=== PATIENT | male | born 1965 | race Caucasian/White ===

== ENCOUNTER 2020-05-09 21:52 | Emergency (ER) | payer SELFPAY ==
[2020-05-09 21:58] VITALS: BP 147/92; PULSE 85; RESP 17; TEMP 36.6; O2SAT 95; BMI 39.1
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
[2020-05-09 22:47] LABS: Basophils # 0.1 10^3/uL (0.0-0.1); Basophils % 0.8 %; Eosinophils # 0.1 10^3/uL (0.0-0.8); Eosinophils % 1.2 %; Hematocrit 44.2 % (42.0-52.0); Hemoglobin 14.6 g/dL (11.7-16.6); Lymphocytes # 0.5 10^3/uL (0.8-4.8); Lymphocytes % 8.8 %; Mean Corpuscular Hemoglobin 27.9 pg (28.0-34.0); Mean Corpuscular Volume 84.5 fL (80-94); Mean Platelet Volume 9.5 fL (7.4-10.4); Monocytes # 0.6 10^3/uL (0.2-0.9); Monocytes % 10.5 %; Neutrophils # 4.71 10^3/uL (1.8-7.7); Neutrophils % 78.2 %; Nucleated Red Blood Cells % 0 %; Platelet Count 223 10^3/cmm (130-400); Red Blood Count 5.23 10^6/uL (4.1-5.3); Red Cell Distribution Width 13.2 % (12.1-15.1)
[2020-05-09] MEDS: ondansetron 2 mg/ML SDV 2 mL 4 MG IVP (22:52)
[2020-05-09 22:53] VITALS: RESP 18; O2SAT 94
[2020-05-09] MEDS: morphine 4 mg/mL SDV 1 mL IVP (22:53)
[2020-05-09 22:55] VITALS: BP 152/91; PULSE 88; RESP 18; O2SAT 93
[2020-05-09 23:09] LABS: Alanine Aminotransferase 16 U/L (0-41); Albumin Level 4.2 g/dL (3.5-5.2); Alkaline Phosphatase 80 IU/L (40-130); Anion Gap 15.3 (5-19); Aspartate Amino Transferase 26 U/L (0-40); Blood Urea Nitrogen 19 mg/dL (6-20); Calcium 9.8 mg/dL (8.5-10.5); Carbon Dioxide 26 mmol/L (22-29); Chloride 97 mmol/L (98-107); Globulin 3.4 g/dL (1.3-4.6); Glucose 385 mg/dL (65-115); Osmolality Calculated 296 mOsm/kg (285-295); Potassium 4.3 mmol/L (3.5-5.1); Sodium 134 mmol/L (136-145); Total Bilirubin 0.3 mg/dL (0.15-1.2); Total Protein 7.6 g/dL (6.6-8.7)
[2020-05-09] MEDS: iohexol 300 mg/mL 100 mL Btl IV (23:51)
[2020-05-10] MEDS: morphine 4 mg/mL SDV 1 mL IVP (00:50)
[2020-05-10 00:58] VITALS: BP 141/81; PULSE 85; O2SAT 97
[2020-05-10] MEDS: HYDROcodone-acetaminophen 7.5-325 mg Tablet 2 TAB PO (02:37)
[2020-05-10 02:38] VITALS: BP 160/106; PULSE 91; RESP 17; O2SAT 95
--- NOTE | 2020-05-10 09:12 | DCPLANNER ---
Addendum entered by Yuridia Pratt 05/10/20 15:09: Patient wants to be seen at [place], closer to where patient lives. Original Note: car inspection and repair manager had message to schedule a follow up appointment for patient with ortho. car inspection and repair manager called the ortho clinic, spoke with Frances, gave clinic patients information. car inspection and repair manager was told that patients information would be printed and reviewed. Clinic will call patient with appointment information.
--- NOTE | 2020-05-10 15:06 | DCPLANNER ---
teller manager had message to schedule a follow up appointment for patient with ortho, pain management and neuro surgery. Patient would like to be seen at [place], it is closer to where he lives. teller manager called [facility], faxed patients information to the ortho clinic and pain management. teller manager was told that if patient needs neuro surgery that the pain management clinic will refer patient to neuro surgery.
== END 2020-05-10 02:38 | disposition home or self-care (01) ==
PROVIDERS: Emergency Provider Physician Assistant
DX: S32.030A Wedge compression fracture of third lumbar vertebra, initial encounter for closed fracture (principal); S43.102A Unspecified dislocation of left acromioclavicular joint, initial encounter; V89.2XXA Person injured in unspecified motor-vehicle accident, traffic, initial encounter
CPT/HCPCS: 12345; 29240; 70450; 71260; 72125; 73030; 74177; 80053; 85025; 96374; 96375; 96376; 99282; 99283; J2270; J2405; Q9967